=== PATIENT | male | born 1970 | race Caucasian/White ===

== ENCOUNTER 2017-10-07 14:03 | Inpatient (IN) | payer BC ==
[2017-10-07 17:07] LABS: ADD MAN DIFF? NO
[2017-10-07 17:09] LABS: BASOPHILS % 0.4 % (0.0-2.0); EOSINOPHILS # 0.8 10^3/ul (0.0-0.5); EOSINOPHILS % 8.1 % (0.0-7.0); HEMOGLOBIN 9.9 g/dl (14.0-18.0); LYMPHOCYTES # 0.8 10^3/ul (0.8-2.9); LYMPHOCYTES % 8.7 % (15.0-51.0); MEAN CORPUSCULAR VOLUME 97.1 fl (82.0-101.0); MEAN PLATELET VOLUME 8.7 fl (7.4-10.4); MONOCYTE # 0.7 10^3/ul (0.3-0.9); MONOCYTES % 6.9 % (0.0-11.0); NEUTROPHIL # 7.3 10^3/ul (1.6-7.5); NEUTROPHILS % 75.4 % (39.0-77.0); PLATELET COUNT 348 10^3/UL (140-415); RED BLOOD COUNT 3.09 10^6/ul (4.70-6.10); RED CELL DISTRIBUTION WIDTH 14.6 % (11.5-14.5)
[2017-10-07 17:09] LABS: WHITE BLOOD COUNT 9.7 10^3/ul (4.8-10.8)
[2017-10-07 17:19] LABS: URINE BLOOD (Dip) POC 1+ (NEGATIVE); URINE GLUCOSE (Dip) POC Negative (NEGATIVE); URINE KETONES (Dip) POC Negative (NEGATIVE); URINE LEUKOCYTE EST (Dip) POC 3+ (NEGATIVE); URINE NITRITE (Dip) POC Negative (NEGATIVE); URINE TOTAL PROTEIN POC 1+ (NEGATIVE)
[2017-10-07 17:19] LABS: URINE PH (Dip) POC 7.5 (5.0-8.5)
[2017-10-07 17:46] LABS: ALANINE AMINOTRANSFERASE 26 IU/L (13-69); ALBUMIN 3.4 g/dl (3.3-4.9); ALBUMIN/GLOBULIN RATIO 1.06; ALKALINE PHOSPHATASE 94 IU/L (42-121); ANION GAP 20 (8-16); ASPARTATE AMINO TRANSFERASE 23 IU/L (15-46); BILIRUBIN,INDIRECT 0.1 mg/dl (0-1.1); BILIRUBIN,TOTAL 0.1 mg/dl (0.2-1.3); BLOOD UREA NITROGEN 81 mg/dl (7-20); CALCIUM 9.5 mg/dl (8.4-10.2); CARBON DIOXIDE 23 mmol/L (21-31); CHLORIDE 103 mmol/L (97-110); CREATININE 8.81 mg/dl (0.61-1.24); GLUCOSE 99 mg/dl (70-220); LIPASE 40 U/L (23-300); SODIUM 140 mmol/L (135-144); TOTAL PROTEIN 6.6 g/dl (6.1-8.1)
[2017-10-07] MEDS: HYDROmorphONE 1 MG/ML SYG IV ×2 (18:02→19:23)
[2017-10-07] MEDS: CEFTRIAXONE 1 GM/50 ML (PMX) 50 ML IVPB (18:43)
[2017-10-07 19:08] LABS: ADD UMIC YES; UR ASCORBIC ACID NEGATIVE (NEGATIVE); UR BACTERIA FEW /HPF (NONE SEEN); UR BILIRUBIN (Dip) NEGATIVE (NEGATIVE); UR BLOOD (Dip) 1+ mg/dL (NEGATIVE); UR CLARITY SLIGHTLY CLOUDY (CLEAR); UR COLOR STRAW (YELLOW); UR GLUCOSE (Dip) 1+ mg/dL (NEGATIVE); UR KETONES (Dip) NEGATIVE (NEGATIVE); UR LEUKOCYTE ESTERASE (Dip) 3+ Leu/ul (NEGATIVE); UR NITRITE (Dip) NEGATIVE (NEGATIVE); UR RBC 7 /HPF (0-5); UR SPECIFIC GRAVITY (Dip) 1.006 (1.003-1.030); UR TOTAL PROTEIN (Dip) 1+ mg/dl (NEGATIVE); UR UROBILINOGEN (Dip) 2+ mg/dL (NEGATIVE); UR WBC 99 /HPF (0-5)
[2017-10-07 19:09] LABS: FLD CLARITY CLOUDY; FLD COLOR YELLOW
[2017-10-07 19:09] LABS: FLD TYPE ASCITES
[2017-10-07 19:10] LABS: FLD RBC 1000 /uL; FLD WBC 2085 /cmm
[2017-10-07] MEDS: DEXTROSE 50% 50 ML SYRINGE IV (19:23)
[2017-10-07] MEDS: NA POLYST SULFON 15 GM/60 ML BTL PO (19:24)
[2017-10-07] MEDS: ALBUTEROL 0.5% (NEB) 2.5 MG/0.5 ML AMP INH (19:24)
[2017-10-07] MEDS: INSULIN REGULAR, HUMAN 100 UNIT/1 ML 3ML VIAL IV (19:25)
[2017-10-07 20:09] LABS: FLD MN % (M) 52 %; FLD PMN % (M) 48 %
[2017-10-07] MEDS: VANCOMYCIN 1 GM (PMX) 250 ML IVPB (20:11)
[2017-10-08] MEDS: HYDROmorphONE 0.5 MG/0.5 ML SYG IV ×3 (00:26→14:59)
[2017-10-08] MEDS ORDERED: HYDROmorphONE 2 MG TAB PO (00:30)
[2017-10-08] MEDS ORDERED: VANCOMYCIN IV PER PHARMACY XX (00:30)
[2017-10-08] MEDS: PANTOPRAZOLE (EC) 40 MG TAB PO (05:39)
[2017-10-08] MEDS ORDERED: SUCRALFATE 1 GM TAB PO ×2 (07:30→21:00)
[2017-10-08] MEDS: METHADONE 10 MG TAB PO ×2 (09:05→21:00)
[2017-10-08] MEDS: CEFTRIAXONE 1 GM/50 ML (PMX) 50 ML IVPB (10:38)
[2017-10-08 12:13] LABS: ANION GAP 20 (8-16); BLOOD UREA NITROGEN 81 mg/dl (7-20); CALCIUM 9.1 mg/dl (8.4-10.2); CARBON DIOXIDE 24 mmol/L (21-31); CHLORIDE 103 mmol/L (97-110); CREATININE 9.07 mg/dl (0.61-1.24); GLUCOSE 108 mg/dl (70-220); POTASSIUM 5.3 mmol/L (3.5-5.1); SODIUM 142 mmol/L (135-144)
[2017-10-08] MEDS ORDERED: CEFTAZIDIME IV (14:00)
[2017-10-08] MEDS ORDERED: VANCOMYCIN IV (14:00)
[2017-10-08] MEDS ORDERED: ONDANSETRON 4 MG TAB PO (14:30)
[2017-10-08] MEDS: BUPROPION (SR) 100 MG TAB PO ×2 (14:59→21:20)
[2017-10-08] MEDS: SEVELAMER CARBONATE 0.8 GM PKT PO (17:54)
[2017-10-08] MEDS: ESCITALOPRAM 10 MG TAB PO (21:00)
[2017-10-08] MEDS: NIFEdipine (XL) 60 MG TAB PO (21:21)
[2017-10-08] MEDS: LABETALOL 100 MG TAB PO (21:22)
[2017-10-08] MEDS: VALSARTAN 160 MG TAB PO (21:23)
[2017-10-08] MEDS: HYDROmorphONE 2 MG/ML SYG IV (21:31)
[2017-10-09 05:50] LABS: ADD MAN DIFF? NO
[2017-10-09 05:58] LABS: BASOPHIL # 0.1 10^3/ul (0.0-0.1); BASOPHILS % 0.7 % (0.0-2.0); EOSINOPHILS # 0.9 10^3/ul (0.0-0.5); HEMATOCRIT 26.8 % (42.0-52.0); HEMOGLOBIN 8.7 g/dl (14.0-18.0); LYMPHOCYTES # 1.4 10^3/ul (0.8-2.9); LYMPHOCYTES % 18.8 % (15.0-51.0); MEAN CORPUSCULAR HEMOGLOBIN 31.1 pg (29.0-33.0); MEAN CORPUSCULAR HGB CONC 32.5 g/dl (32.0-37.0); MEAN CORPUSCULAR VOLUME 95.7 fl (82.0-101.0); MEAN PLATELET VOLUME 9.3 fl (7.4-10.4); MONOCYTE # 0.6 10^3/ul (0.3-0.9); MONOCYTES % 8.1 % (0.0-11.0); NEUTROPHIL # 4.6 10^3/ul (1.6-7.5); NEUTROPHILS % 60.1 % (39.0-77.0); PLATELET COUNT 336 10^3/UL (140-415); RED CELL DISTRIBUTION WIDTH 14.2 % (11.5-14.5)
[2017-10-09 05:58] LABS: WHITE BLOOD COUNT 7.7 10^3/ul (4.8-10.8)
[2017-10-09 06:31] LABS: ANION GAP 18 (8-16); BLOOD UREA NITROGEN 78 mg/dl (7-20); CALCIUM 9.1 mg/dl (8.4-10.2); CARBON DIOXIDE 23 mmol/L (21-31); CHLORIDE 102 mmol/L (97-110); CREATININE 9.15 mg/dl (0.61-1.24); GLUCOSE 83 mg/dl (70-220); MAGNESIUM 2.2 mg/dl (1.7-2.5); PHOSPHORUS 8.2 mg/dl (2.5-4.9); POTASSIUM 5.1 mmol/L (3.5-5.1); SODIUM 138 mmol/L (135-144)
[2017-10-09 06:33] LABS: VANCOMYCIN,RANDOM 32.5 ug/ml
[2017-10-09] MEDS: HYDROmorphONE 2 MG/ML SYG IV ×4 (07:25→20:56)
[2017-10-09] MEDS: LABETALOL 100 MG TAB PO ×2 (09:30→20:57)
[2017-10-09] MEDS: VALSARTAN 160 MG TAB PO ×2 (09:31→20:57)
[2017-10-09] MEDS: CALCITRIOL 0.25 MCG CAP PO (09:31)
[2017-10-09] MEDS: BUPROPION (SR) 100 MG TAB PO ×2 (09:31→20:57)
[2017-10-09] MEDS: METHADONE 10 MG TAB PO ×2 (09:31→21:00)
[2017-10-09] MEDS: NIFEdipine (XL) 60 MG TAB PO ×2 (09:32→20:56)
[2017-10-09] MEDS ORDERED: CEFTAZIDIME 1GM/50 ML (PMX) 50 ML IVPB (10:00)
[2017-10-09] MEDS: CEFTRIAXONE 1 GM/50 ML (PMX) 50 ML IVPB (11:02)
[2017-10-09] MEDS: SEVELAMER CARBONATE 2.4 GM PKT PO ×2 (11:51→18:21)
[2017-10-09] MEDS: CEFTAZIDIME IV (16:00)
[2017-10-09] MEDS: ESCITALOPRAM 10 MG TAB PO (21:00)
[2017-10-09] MEDS: CEFEPIME 1GM/50 ML (PMX) 50 ML IVPB (22:05)
[2017-10-10] MEDS: HYDROmorphONE 2 MG/ML SYG IV ×4 (06:59→19:49)
[2017-10-10 08:19] LABS: ADD MAN DIFF? NO
[2017-10-10 08:27] LABS: WHITE BLOOD COUNT 8.3 10^3/ul (4.8-10.8)
[2017-10-10 08:27] LABS: BASOPHILS % 0.4 % (0.0-2.0); EOSINOPHILS # 0.8 10^3/ul (0.0-0.5); EOSINOPHILS % 9.9 % (0.0-7.0); HEMATOCRIT 26.8 % (42.0-52.0); HEMOGLOBIN 8.6 g/dl (14.0-18.0); LYMPHOCYTES # 0.9 10^3/ul (0.8-2.9); LYMPHOCYTES % 10.9 % (15.0-51.0); MEAN CORPUSCULAR HEMOGLOBIN 30.6 pg (29.0-33.0); MEAN CORPUSCULAR HGB CONC 32.1 g/dl (32.0-37.0); MEAN CORPUSCULAR VOLUME 95.4 fl (82.0-101.0); MEAN PLATELET VOLUME 9.1 fl (7.4-10.4); MONOCYTE # 0.6 10^3/ul (0.3-0.9); NEUTROPHIL # 5.9 10^3/ul (1.6-7.5); NEUTROPHILS % 71.6 % (39.0-77.0); PLATELET COUNT 336 10^3/UL (140-415); RED BLOOD COUNT 2.81 10^6/ul (4.70-6.10); RED CELL DISTRIBUTION WIDTH 13.8 % (11.5-14.5)
[2017-10-10] MEDS: METHADONE 10 MG TAB PO ×3 (09:00→21:00)
[2017-10-10 09:03] LABS: ANION GAP 22 (8-16); BLOOD UREA NITROGEN 78 mg/dl (7-20); CALCIUM 9.3 mg/dl (8.4-10.2); CARBON DIOXIDE 24 mmol/L (21-31); CHLORIDE 101 mmol/L (97-110); CREATININE 9.28 mg/dl (0.61-1.24); GLUCOSE 102 mg/dl (70-220); MAGNESIUM 2.1 mg/dl (1.7-2.5); PHOSPHORUS 7.8 mg/dl (2.5-4.9); POTASSIUM 4.9 mmol/L (3.5-5.1); SODIUM 142 mmol/L (135-144)
[2017-10-10] MEDS: CALCITRIOL 0.25 MCG CAP PO (09:06)
[2017-10-10] MEDS: BUPROPION (SR) 100 MG TAB PO ×2 (09:06→21:06)
[2017-10-10] MEDS: SEVELAMER CARBONATE 2.4 GM PKT PO ×3 (09:07→17:38)
[2017-10-10] MEDS: VALSARTAN 160 MG TAB PO ×2 (09:08→21:07)
[2017-10-10] MEDS: LABETALOL 100 MG TAB PO ×2 (09:08→21:07)
[2017-10-10] MEDS: NIFEdipine (XL) 60 MG TAB PO ×2 (09:08→21:06)
[2017-10-10] MEDS ORDERED: SEVELAMER CARBONATE 0.8 GM PKT PO (12:00)
[2017-10-10] MEDS ORDERED: SEVELAMER CARBONATE 2.4 GM PKT PO (12:00)
[2017-10-10] MEDS: SEVELAMER CARBONATE 0.8 GM PKT PO ×2 (12:59→17:38)
[2017-10-10 13:40] LABS: FLD MN% 34.5 %; FLD PMN% 65.5 %; FLD RBC 0 /uL; FLD WBC 55 /cmm
[2017-10-10 14:04] LABS: FLD TYPE PERITONEAL
[2017-10-10 14:04] LABS: FLD CLARITY CLEAR; FLD COLOR YELLOW
[2017-10-10] MEDS: CEFEPIME 1GM/50 ML (PMX) 50 ML IVPB (21:00)
[2017-10-10] MEDS: ESCITALOPRAM 10 MG TAB PO (21:00)
[2017-10-11] MEDS: HYDROmorphONE 2 MG/ML SYG IV ×6 (02:24→21:32)
[2017-10-11] MEDS: SEVELAMER CARBONATE 2.4 GM PKT PO ×3 (08:18→17:55)
[2017-10-11] MEDS: SEVELAMER CARBONATE 0.8 GM PKT PO ×3 (08:23→17:55)
[2017-10-11 09:04] LABS: ANION GAP 18 (8-16); BLOOD UREA NITROGEN 74 mg/dl (7-20); CALCIUM 9.1 mg/dl (8.4-10.2); CARBON DIOXIDE 24 mmol/L (21-31); CHLORIDE 104 mmol/L (97-110); CREATININE 9.76 mg/dl (0.61-1.24); GLUCOSE 82 mg/dl (70-220); MAGNESIUM 1.9 mg/dl (1.7-2.5); PHOSPHORUS 6.7 mg/dl (2.5-4.9); POTASSIUM 4.9 mmol/L (3.5-5.1); SODIUM 141 mmol/L (135-144)
[2017-10-11] MEDS: METHADONE 10 MG TAB PO ×2 (09:45→21:18)
[2017-10-11] MEDS: VALSARTAN 160 MG TAB PO ×2 (09:46→21:17)
[2017-10-11] MEDS: CALCITRIOL 0.25 MCG CAP PO (09:46)
[2017-10-11] MEDS: NIFEdipine (XL) 60 MG TAB PO ×2 (09:46→21:18)
[2017-10-11] MEDS: BUPROPION (SR) 100 MG TAB PO ×2 (09:46→21:19)
[2017-10-11] MEDS: LABETALOL 100 MG TAB PO ×2 (09:47→21:18)
[2017-10-11] MEDS: GUAIFENESIN/DM 5ML CUP PO ×2 (09:47→14:20)
[2017-10-11] MEDS ORDERED: CEFTAZIDIME 1 GM INJ IRR (11:00)
[2017-10-11] MEDS ORDERED: CEFTAZIDIME IV (13:00)
[2017-10-11] MEDS: OSELTAMIVIR 30 MG CAP PO (17:55)
[2017-10-11] MEDS: ONDANSETRON 4 MG INJ IV (18:41)
[2017-10-11] MEDS: ACETAMINOPHEN 325 MG TAB PO ×2 (18:41→23:58)
[2017-10-11] MEDS: EPOETIN 10000 UNITS/1 ML INJ (ESRD) SC (18:42)
[2017-10-11] MEDS: ESCITALOPRAM 10 MG TAB PO (21:00)
[2017-10-11] MEDS: CEFEPIME 1GM/50 ML (PMX) 50 ML IVPB (21:13)
[2017-10-11] MEDS: DOCUSATE SODIUM 100 MG CAP PO (21:17)
[2017-10-12] MEDS: SEVELAMER CARBONATE 2.4 GM PKT PO ×3 (08:32→18:46)
[2017-10-12] MEDS: SEVELAMER CARBONATE 0.8 GM PKT PO ×3 (08:32→18:46)
[2017-10-12] MEDS: DOCUSATE SODIUM 100 MG CAP PO ×2 (08:32→22:06)
[2017-10-12] MEDS: ACETAMINOPHEN 325 MG TAB PO ×3 (08:33→22:29)
[2017-10-12] MEDS: BUPROPION (SR) 100 MG TAB PO ×2 (08:33→22:07)
[2017-10-12] MEDS: LABETALOL 100 MG TAB PO ×2 (08:34→22:06)
[2017-10-12] MEDS: OSELTAMIVIR 30 MG CAP PO (08:34)
[2017-10-12] MEDS: METHADONE 10 MG TAB PO ×2 (08:34→22:29)
[2017-10-12] MEDS: NIFEdipine (XL) 60 MG TAB PO ×2 (08:35→22:07)
[2017-10-12] MEDS: VALSARTAN 160 MG TAB PO ×2 (08:35→22:07)
[2017-10-12 09:03] LABS: ADD MAN DIFF? NO
[2017-10-12 09:10] LABS: WHITE BLOOD COUNT 4.9 10^3/ul (4.8-10.8)
[2017-10-12 09:10] LABS: BASOPHILS % 0.4 % (0.0-2.0); EOSINOPHILS # 0.2 10^3/ul (0.0-0.5); HEMATOCRIT 25.9 % (42.0-52.0); HEMOGLOBIN 8.3 g/dl (14.0-18.0); LYMPHOCYTES # 0.6 10^3/ul (0.8-2.9); MEAN CORPUSCULAR HEMOGLOBIN 30.7 pg (29.0-33.0); MEAN CORPUSCULAR VOLUME 95.9 fl (82.0-101.0); MEAN PLATELET VOLUME 9.6 fl (7.4-10.4); MONOCYTE # 0.6 10^3/ul (0.3-0.9); MONOCYTES % 11.4 % (0.0-11.0); NEUTROPHIL # 3.5 10^3/ul (1.6-7.5); PLATELET COUNT 261 10^3/UL (140-415); RED CELL DISTRIBUTION WIDTH 13.9 % (11.5-14.5)
[2017-10-12 09:32] LABS: ANION GAP 19 (8-16); BLOOD UREA NITROGEN 68 mg/dl (7-20); CALCIUM 8.9 mg/dl (8.4-10.2); CARBON DIOXIDE 21 mmol/L (21-31); CHLORIDE 103 mmol/L (97-110); CREATININE 9.73 mg/dl (0.61-1.24); GLUCOSE 97 mg/dl (70-220); PHOSPHORUS 6.2 mg/dl (2.5-4.9); POTASSIUM 5.4 mmol/L (3.5-5.1); SODIUM 138 mmol/L (135-144)
[2017-10-12] MEDS ORDERED: [UNRECOGNIZED DRUG - MIXTURE] XX (10:00)
[2017-10-12] MEDS: HYDROmorphONE 2 MG/ML SYG IV ×3 (10:05→22:29)
[2017-10-12] MEDS: CALCITRIOL 0.25 MCG CAP PO (15:26)
[2017-10-12] MEDS: PERITONEAL DIALYSIS INJ (17:51)
[2017-10-12] MEDS: VANCOMYCIN INJ (17:51)
[2017-10-12] MEDS: CEFEPIME 1GM/50 ML (PMX) 50 ML IVPB (22:05)
[2017-10-12] MEDS: POLYETHYLENE GLYCOL 17 GM PACKET PO (22:29)
[2017-10-13] MEDS: AL HYDROX/MG HYDROX/SIMETH 30 ML CUP PO ×2 (01:16→21:58)
[2017-10-13] MEDS: HYDROmorphONE 2 MG/ML SYG IV ×3 (06:56→21:41)
[2017-10-13] MEDS: CALCITRIOL 0.25 MCG CAP PO (08:43)
[2017-10-13] MEDS: BUPROPION (SR) 100 MG TAB PO ×2 (08:43→21:48)
[2017-10-13] MEDS: DOCUSATE SODIUM 100 MG CAP PO ×2 (08:44→21:46)
[2017-10-13] MEDS: OSELTAMIVIR 30 MG CAP PO (08:44)
[2017-10-13] MEDS: METHADONE 10 MG TAB PO ×2 (08:45→21:00)
[2017-10-13] MEDS: NIFEdipine (XL) 60 MG TAB PO ×2 (08:46→21:48)
[2017-10-13] MEDS: SEVELAMER CARBONATE 0.8 GM PKT PO ×4 (08:46→18:08)
[2017-10-13] MEDS: VALSARTAN 160 MG TAB PO ×2 (08:46→21:47)
[2017-10-13] MEDS: SEVELAMER CARBONATE 2.4 GM PKT PO ×4 (08:47→18:08)
[2017-10-13] MEDS: LABETALOL 100 MG TAB PO ×2 (08:47→21:48)
[2017-10-13] MEDS ORDERED: VANCOMYCIN IV PER PHARMACY XX (09:00)
[2017-10-13] MEDS ORDERED: [UNRECOGNIZED DRUG - MIXTURE] XX (10:00)
[2017-10-13 10:55] LABS: ANION GAP 19 (8-16); BLOOD UREA NITROGEN 68 mg/dl (7-20); CALCIUM 8.7 mg/dl (8.4-10.2); CARBON DIOXIDE 20 mmol/L (21-31); CHLORIDE 104 mmol/L (97-110); CREATININE 9.58 mg/dl (0.61-1.24); GLUCOSE 118 mg/dl (70-220); MAGNESIUM 2.1 mg/dl (1.7-2.5); PHOSPHORUS 5.9 mg/dl (2.5-4.9); POTASSIUM 4.9 mmol/L (3.5-5.1); SODIUM 138 mmol/L (135-144)
[2017-10-13] MEDS: CEFTAZIDIME (13:29)
[2017-10-13] MEDS ORDERED: VANCOMYCIN INJ (16:00)
[2017-10-13] MEDS ORDERED: PERITONEAL DIALYSIS INJ (16:00)
[2017-10-13] MEDS: EPOETIN 10000 UNITS/1 ML INJ (ESRD) SC (18:09)
[2017-10-13] MEDS: ACETAMINOPHEN 325 MG TAB PO (21:46)
[2017-10-13] MEDS: TRIMETHOPRIM/SULFAMETHOX (DS) TAB PO (21:46)
[2017-10-13] MEDS: GUAIFENESIN/DM 5ML CUP PO (21:58)
[2017-10-14] MEDS: HYDROmorphONE 2 MG/ML SYG IV ×4 (06:24→20:14)
[2017-10-14] MEDS: SEVELAMER CARBONATE 0.8 GM PKT PO ×3 (08:49→17:28)
[2017-10-14] MEDS: OSELTAMIVIR 30 MG CAP PO (08:49)
[2017-10-14] MEDS: DOCUSATE SODIUM 100 MG CAP PO ×2 (08:49→22:26)
[2017-10-14] MEDS: SEVELAMER CARBONATE 2.4 GM PKT PO ×3 (08:49→17:28)
[2017-10-14] MEDS: TRIMETHOPRIM/SULFAMETHOX (DS) TAB PO (08:50)
[2017-10-14] MEDS: CALCITRIOL 0.25 MCG CAP PO (08:51)
[2017-10-14] MEDS: BUPROPION (SR) 100 MG TAB PO ×2 (08:51→22:26)
[2017-10-14] MEDS: VALSARTAN 160 MG TAB PO ×2 (08:52→22:27)
[2017-10-14] MEDS: LABETALOL 100 MG TAB PO ×2 (08:52→22:28)
[2017-10-14] MEDS: NIFEdipine (XL) 60 MG TAB PO ×2 (08:52→22:28)
[2017-10-14] MEDS: METHADONE 10 MG TAB PO ×2 (08:56→22:26)
[2017-10-14 11:26] LABS: ADD MAN DIFF? NO
[2017-10-14 11:31] LABS: BASOPHILS % 0.3 % (0.0-2.0); EOSINOPHILS # 0.4 10^3/ul (0.0-0.5); EOSINOPHILS % 5.7 % (0.0-7.0); HEMATOCRIT 26.5 % (42.0-52.0); HEMOGLOBIN 8.6 g/dl (14.0-18.0); LYMPHOCYTES # 1.7 10^3/ul (0.8-2.9); LYMPHOCYTES % 22.6 % (15.0-51.0); MEAN CORPUSCULAR HEMOGLOBIN 30.3 pg (29.0-33.0); MEAN CORPUSCULAR HGB CONC 32.5 g/dl (32.0-37.0); MEAN CORPUSCULAR VOLUME 93.3 fl (82.0-101.0); MEAN PLATELET VOLUME 9.9 fl (7.4-10.4); MONOCYTE # 0.6 10^3/ul (0.3-0.9); MONOCYTES % 7.6 % (0.0-11.0); NEUTROPHIL # 4.7 10^3/ul (1.6-7.5); NEUTROPHILS % 63.4 % (39.0-77.0); PLATELET COUNT 330 10^3/UL (140-415); RED BLOOD COUNT 2.84 10^6/ul (4.70-6.10); RED CELL DISTRIBUTION WIDTH 14.4 % (11.5-14.5)
[2017-10-14 11:31] LABS: WHITE BLOOD COUNT 7.4 10^3/ul (4.8-10.8)
[2017-10-14 11:56] LABS: ANION GAP 18 (8-16); BLOOD UREA NITROGEN 60 mg/dl (7-20); CALCIUM 8.8 mg/dl (8.4-10.2); CARBON DIOXIDE 25 mmol/L (21-31); CHLORIDE 101 mmol/L (97-110); GLUCOSE 92 mg/dl (70-220); MAGNESIUM 2.2 mg/dl (1.7-2.5); PHOSPHORUS 4.7 mg/dl (2.5-4.9); POTASSIUM 4.3 mmol/L (3.5-5.1); SODIUM 140 mmol/L (135-144)
[2017-10-14] MEDS: CEFTAZIDIME (12:00)
[2017-10-14] MEDS: AL HYDROX/MG HYDROX/SIMETH 30 ML CUP PO ×2 (13:28→22:33)
[2017-10-15] MEDS: HYDROmorphONE 2 MG/ML SYG IV ×4 (04:55→21:28)
[2017-10-15] MEDS: SEVELAMER CARBONATE 0.8 GM PKT PO ×3 (08:27→17:18)
[2017-10-15] MEDS: TRIMETHOPRIM/SULFAMETHOX (DS) TAB PO ×2 (08:27→21:30)
[2017-10-15] MEDS: DOCUSATE SODIUM 100 MG CAP PO ×2 (08:27→21:29)
[2017-10-15] MEDS: SEVELAMER CARBONATE 2.4 GM PKT PO ×3 (08:27→17:18)
[2017-10-15] MEDS: VALSARTAN 160 MG TAB PO ×2 (08:28→21:29)
[2017-10-15] MEDS: LABETALOL 100 MG TAB PO ×2 (08:28→21:29)
[2017-10-15] MEDS: CALCITRIOL 0.25 MCG CAP PO (08:29)
[2017-10-15] MEDS: BUPROPION (SR) 100 MG TAB PO ×2 (08:29→21:30)
[2017-10-15] MEDS: NIFEdipine (XL) 60 MG TAB PO ×2 (08:29→21:30)
[2017-10-15] MEDS: OSELTAMIVIR 30 MG CAP PO (08:29)
[2017-10-15] MEDS: METHADONE 10 MG TAB PO ×3 (08:33→21:29)
[2017-10-15] MEDS ORDERED: TRIMETHOPRIM/SULFAMETHOX (DS) TAB PO (09:00)
[2017-10-15 09:57] LABS: VANCOMYCIN,RANDOM 8.7 ug/ml
[2017-10-15] MEDS: CEFTAZIDIME (12:00)
[2017-10-15] MEDS: PERITONEAL DIALYSIS INJ (16:00)
[2017-10-15] MEDS: VANCOMYCIN INJ (16:00)
[2017-10-16] MEDS: SEVELAMER CARBONATE 2.4 GM PKT PO ×4 (08:06→21:30)
[2017-10-16] MEDS: HYDROmorphONE 2 MG/ML SYG IV ×4 (08:06→17:41)
[2017-10-16] MEDS: TRIMETHOPRIM/SULFAMETHOX (DS) TAB PO ×2 (08:07→21:29)
[2017-10-16] MEDS: VALSARTAN 160 MG TAB PO ×2 (08:07→21:29)
[2017-10-16] MEDS: OSELTAMIVIR 30 MG CAP PO (08:07)
[2017-10-16] MEDS: BUPROPION (SR) 100 MG TAB PO ×2 (08:07→21:30)
[2017-10-16] MEDS: DOCUSATE SODIUM 100 MG CAP PO ×2 (08:07→21:30)
[2017-10-16] MEDS: CALCITRIOL 0.25 MCG CAP PO (08:07)
[2017-10-16] MEDS: METHADONE 10 MG TAB PO ×2 (08:08→21:29)
[2017-10-16] MEDS: SEVELAMER CARBONATE 0.8 GM PKT PO ×4 (08:08→21:30)
[2017-10-16] MEDS: NIFEdipine (XL) 60 MG TAB PO ×2 (08:08→21:30)
[2017-10-16] MEDS: LABETALOL 100 MG TAB PO ×2 (08:08→21:30)
[2017-10-16] MEDS: CEFTAZIDIME (12:00)
[2017-10-16] MEDS: ONDANSETRON 4 MG INJ IV (16:03)
[2017-10-16] MEDS: EPOETIN 10000 UNITS/1 ML INJ (ESRD) SC (16:09)
[2017-10-17] MEDS: HYDROmorphONE 2 MG/ML SYG IV ×5 (00:07→17:12)
[2017-10-17] MEDS: IOHEXOL 14.3 MG(I)/ML (ADULT) BTL PO (00:30)
[2017-10-17] MEDS: SEVELAMER CARBONATE 2.4 GM PKT PO ×2 (07:48→17:11)
[2017-10-17] MEDS: SEVELAMER CARBONATE 0.8 GM PKT PO ×2 (07:48→17:11)
[2017-10-17] MEDS: POLYETHYLENE GLYCOL 17 GM PACKET PO (07:48)
[2017-10-17] MEDS: BUPROPION (SR) 100 MG TAB PO ×2 (07:48→21:10)
[2017-10-17] MEDS: CALCITRIOL 0.25 MCG CAP PO (07:48)
[2017-10-17] MEDS: METHADONE 10 MG TAB PO ×2 (07:49→21:00)
[2017-10-17] MEDS: NIFEdipine (XL) 60 MG TAB PO ×2 (07:49→21:10)
[2017-10-17] MEDS: LABETALOL 100 MG TAB PO ×2 (07:49→21:10)
[2017-10-17] MEDS: DOCUSATE SODIUM 100 MG CAP PO ×2 (07:49→21:09)
[2017-10-17] MEDS: VALSARTAN 160 MG TAB PO ×2 (07:49→21:10)
[2017-10-17] MEDS: TRIMETHOPRIM/SULFAMETHOX (DS) TAB PO ×2 (07:49→21:09)
[2017-10-17 08:48] LABS: ADD MAN DIFF? NO
[2017-10-17 09:05] LABS: BASOPHILS % 0.4 % (0.0-2.0); EOSINOPHILS # 1.3 10^3/ul (0.0-0.5); EOSINOPHILS % 18.8 % (0.0-7.0); HEMATOCRIT 31.6 % (42.0-52.0); LYMPHOCYTES # 2.2 10^3/ul (0.8-2.9); LYMPHOCYTES % 31.3 % (15.0-51.0); MEAN CORPUSCULAR HEMOGLOBIN 29.9 pg (29.0-33.0); MEAN CORPUSCULAR HGB CONC 31.6 g/dl (32.0-37.0); MEAN CORPUSCULAR VOLUME 94.3 fl (82.0-101.0); MEAN PLATELET VOLUME 9.1 fl (7.4-10.4); MONOCYTE # 0.5 10^3/ul (0.3-0.9); MONOCYTES % 7.6 % (0.0-11.0); NEUTROPHIL # 2.9 10^3/ul (1.6-7.5); NEUTROPHILS % 40.9 % (39.0-77.0); PLATELET COUNT 466 10^3/UL (140-415); RED BLOOD COUNT 3.35 10^6/ul (4.70-6.10); RED CELL DISTRIBUTION WIDTH 14.6 % (11.5-14.5)
[2017-10-17 09:32] LABS: ANION GAP 14 (8-16); BLOOD UREA NITROGEN 54 mg/dl (7-20); CALCIUM 9.3 mg/dl (8.4-10.2); CARBON DIOXIDE 25 mmol/L (21-31); CHLORIDE 106 mmol/L (97-110); CREATININE 9.41 mg/dl (0.61-1.24); GLUCOSE 94 mg/dl (70-220); MAGNESIUM 2.8 mg/dl (1.7-2.5); PHOSPHORUS 3.9 mg/dl (2.5-4.9); POTASSIUM 5.3 mmol/L (3.5-5.1); SODIUM 140 mmol/L (135-144)
[2017-10-17] MEDS: CEFTAZIDIME (12:00)
[2017-10-17] MEDS: IODIXANOL LOCM 100 ML BTL (14:19)
[2017-10-17] MEDS: IOHEXOL 300MG/ML 30 ML BTL ×2 (14:19)
[2017-10-17] MEDS: SOD CHLORIDE 0.9% 100 ML (14:19)
[2017-10-17] MEDS: ONDANSETRON 4 MG INJ IV (14:39)
[2017-10-17] MEDS: AL HYDROX/MG HYDROX/SIMETH 30 ML CUP PO (14:39)
[2017-10-17 15:22] LABS: ADD UMIC YES; UR ASCORBIC ACID NEGATIVE (NEGATIVE); UR BILIRUBIN (Dip) NEGATIVE (NEGATIVE); UR BLOOD (Dip) 1+ mg/dL (NEGATIVE); UR CLARITY CLEAR (CLEAR); UR COLOR STRAW (YELLOW); UR GLUCOSE (Dip) 1+ mg/dL (NEGATIVE); UR KETONES (Dip) NEGATIVE (NEGATIVE); UR LEUKOCYTE ESTERASE (Dip) NEGATIVE Leu/ul (NEGATIVE); UR MUCUS FEW /HPF (NONE SEEN); UR NITRITE (Dip) NEGATIVE (NEGATIVE); UR RBC 1 /HPF (0-5); UR SPECIFIC GRAVITY (Dip) 1.005 (1.003-1.030); UR TOTAL PROTEIN (Dip) 2+ mg/dl (NEGATIVE); UR UROBILINOGEN (Dip) NEGATIVE (NEGATIVE); UR WBC 2 /HPF (0-5)
[2017-10-17] MEDS: PANTOPRAZOLE (EC) 40 MG TAB PO (16:34)
[2017-10-18] MEDS: HYDROmorphONE 2 MG/ML SYG IV ×7 (00:19→22:02)
[2017-10-18] MEDS: PANTOPRAZOLE (EC) 40 MG TAB PO (05:23)
[2017-10-18 06:49] LABS: VANCOMYCIN,RANDOM 6.2 ug/ml
[2017-10-18] MEDS: TRIMETHOPRIM/SULFAMETHOX (DS) TAB PO ×2 (08:38→21:49)
[2017-10-18] MEDS: BUPROPION (SR) 100 MG TAB PO ×2 (08:39→21:50)
[2017-10-18] MEDS: METHADONE 10 MG TAB PO ×2 (08:39→21:51)
[2017-10-18] MEDS: NIFEdipine (XL) 60 MG TAB PO ×2 (08:39→21:51)
[2017-10-18] MEDS: DOCUSATE SODIUM 100 MG CAP PO ×2 (08:39→21:50)
[2017-10-18] MEDS: LABETALOL 100 MG TAB PO ×2 (08:39→21:51)
[2017-10-18] MEDS: CALCITRIOL 0.25 MCG CAP PO (08:39)
[2017-10-18] MEDS: VALSARTAN 160 MG TAB PO ×2 (08:39→21:50)
[2017-10-18] MEDS: SEVELAMER CARBONATE 2.4 GM PKT PO ×3 (08:40→17:13)
[2017-10-18] MEDS: SEVELAMER CARBONATE 0.8 GM PKT PO ×3 (08:40→17:13)
[2017-10-18] MEDS: CEFTAZIDIME (11:16)
[2017-10-18] MEDS: PERITONEAL DIALYSIS INJ (15:08)
[2017-10-18] MEDS: VANCOMYCIN INJ (15:08)
[2017-10-18] MEDS: EPOETIN 10000 UNITS/1 ML INJ (ESRD) SC (17:14)
[2017-10-19] MEDS: PANTOPRAZOLE (EC) 40 MG TAB PO (06:39)
[2017-10-19] MEDS: HYDROmorphONE 2 MG/ML SYG IV ×4 (06:44→18:04)
[2017-10-19] MEDS: DOCUSATE SODIUM 100 MG CAP PO (09:22)
[2017-10-19] MEDS: TRIMETHOPRIM/SULFAMETHOX (DS) TAB PO (09:22)
[2017-10-19] MEDS: BUPROPION (SR) 100 MG TAB PO (09:22)
[2017-10-19] MEDS: LABETALOL 100 MG TAB PO (09:22)
[2017-10-19] MEDS: CALCITRIOL 0.25 MCG CAP PO (09:22)
[2017-10-19] MEDS: VALSARTAN 160 MG TAB PO (09:23)
[2017-10-19] MEDS: METHADONE 10 MG TAB PO (09:23)
[2017-10-19] MEDS: NIFEdipine (XL) 60 MG TAB PO (09:23)
[2017-10-19] MEDS: SEVELAMER CARBONATE 2.4 GM PKT PO ×3 (09:24→18:04)
[2017-10-19] MEDS: SEVELAMER CARBONATE 0.8 GM PKT PO ×3 (09:24→18:04)
[2017-10-19 11:32] LABS: ANION GAP 17 (8-16); BLOOD UREA NITROGEN 56 mg/dl (7-20); CALCIUM 9.1 mg/dl (8.4-10.2); CARBON DIOXIDE 22 mmol/L (21-31); CHLORIDE 104 mmol/L (97-110); CREATININE 9.84 mg/dl (0.61-1.24); GLUCOSE 95 mg/dl (70-220); POTASSIUM 5.3 mmol/L (3.5-5.1); SODIUM 138 mmol/L (135-144)
[2017-10-19] MEDS: CEFTAZIDIME (12:00)
[2017-10-19] MEDS: GUAIFENESIN/DM 5ML CUP PO (14:05)
[2017-10-19] MEDS: HEPARIN 1000 UNITS/ML 10 ML INJ HE (16:36)
== END 2017-10-19 18:30 | disposition home health service (06) | DRG 371 ==
LOC: FTE 14:03 → MS4 20:30
PROC: 3E1M39Z Irrigation of Peritoneal Cavity using Dialysate, Percutaneous Approach (ICD-10-PCS; principal; 2017-10-08)
DX: K65.9 Peritonitis, unspecified (principal); N18.6 End stage renal disease; E43 Unspecified severe protein-calorie malnutrition; I12.0 Hypertensive chronic kidney disease with stage 5 chronic kidney disease or end stage renal disease; N13.30 Unspecified hydronephrosis; N13.4 Hydroureter; Z68.1 Body mass index [BMI] 19.9 or less, adult; N39.0 Urinary tract infection, site not specified; J10.1 Influenza due to other identified influenza virus with other respiratory manifestations; E83.9 Disorder of mineral metabolism, unspecified; E87.5 Hyperkalemia; D64.9 Anemia, unspecified; F32.9 Major depressive disorder, single episode, unspecified; G89.4 Chronic pain syndrome; I25.10 Atherosclerotic heart disease of native coronary artery without angina pectoris; R53.81 Other malaise; N21.0 Calculus in bladder; Z93.6 Other artificial openings of urinary tract status; Z99.2 Dependence on renal dialysis
CPT/HCPCS: 36415; 72148; 72192; 74176; 80048; 80053; 80202; 81001; 81003; 83690; 83735; 84100; 85025; 87070; 87086; 87400; 89051; 90945; 94644; 96374; 96375; 96376; 97163; 99291-25

== ENCOUNTER 2018-04-17 00:58 | Emergency (ER) | payer SELFPAY, BC | END 2018-04-17 02:16 | disposition left against medical advice (07) | LOC: E/R 00:58 | DX: Z53.21 Procedure and treatment not carried out due to patient leaving prior to being seen by health care provider (principal) ==